=== PATIENT | female | born 1995 | race African-American/Black ===

== ENCOUNTER 2017-08-25 18:52 | Emergency (ER) | payer OTHER ==
[2017-08-25] MEDS ORDERED: Aspirin Low Dose CHEW TAB* 81 MG PO ONE (19:53)
[2017-08-25 20:18] LABS: Urine Bacteria Absent (Absent); Urine Bilirubin Negative (Negative); Urine Glucose Negative (Negative); Urine Nitrite Negative (Negative)
--- NOTE | 2017-08-25 20:30 | RAD ---
HISTORY: Chest pain COMPARISONS: None VIEWS: 4: Frontal dual-energy and lateral views of the chest. FINDINGS: CARDIOMEDIASTINAL SILHOUETTE: The cardiomediastinal silhouette is normal. FRANK: The frank are normal. PLEURA: The costophrenic angles are sharp. No pleural abnormalities are noted. LUNG PARENCHYMA: The lungs are clear. ABDOMEN: The upper abdomen is clear. There is no subphrenic gas. BONES AND SOFT TISSUES: There is a scoliotic curvature of the spine OTHER: None. IMPRESSION: NO ACTIVE CARDIOPULMONARY DISEASE.
[2017-08-25 21:18] LABS: Hematocrit 38 % (35-47); Mean Corpuscular HGB Conc 34 g/dl (31-36); Mean Corpuscular Hemoglobin 30 pg (27-31); Mean Corpuscular Volume 88 fL (80-97); Mean Platelet Volume 10 um3 (7.4-10.4); Red Blood Count 4.38 10^6/ul (4.0-5.4); Red Cell Distribution Width 14 % (10.5-15); White Blood Count 3.6 10^3/ul (3.5-10.8)
[2017-08-25 21:33] LABS: ALT 20 U/L (7-52); AST 22 U/L (13-39); Albumin 4.8 g/dL (3.2-5.2); Alkaline Phosphatase 50 U/L (34-104); Anion Gap 9 mmol/L (2-11); BUN/Creatinine Ratio 10.2 (8-20); Blood Urea Nitrogen 11 mg/dL (6-24); CO2 Carbon Dioxide 24 mmol/L (22-32); Calcium 9.9 mg/dL (8.6-10.3); Chloride 104 mmol/L (101-111); EGFR African American 81.6 (>60); EGFR Non-African American 63.4 (>60); Globulin 4.3 g/dL (2-4); Glucose 86 mg/dL (70-100); Potassium 3.6 mmol/L (3.5-5.0); Sodium 137 mmol/L (133-145); Total Protein 9.1 g/dL (6.4-8.9)
[2017-08-25] MEDS ORDERED: NS 0.9% 1000 ML* 1,000 ML IV ONE (21:58)
[2017-08-25 22:05] LABS: TSH (Thyroid Stimulating Horm) 2.86 mcIU/mL (0.34-5.60)
[2017-08-25] MEDS ORDERED: Iohexol 350* (CONTRAST) 500 ML MDV IV ONE (22:13)
[2017-08-25 23:33] VITALS: BP 125/81
--- NOTE | 2017-08-26 06:53 | ED ---
Sami Geller Alfonso, scribed for Roberto Fritz MD on 08/25/17 at 2049 . HPI Chest Pain - HPI Summary HPI Summary: This patient is a 22 year old F presenting to [facility] with a chief complaint of intermittent left sided chest tightness since 1200 today. The patient rates the pain 4/10 in severity. Symptoms aggravated by nothing. Symptoms alleviated by nothing. Patient reports lightheadedness (aggravated by standing up), near syncope (lasting a week and resolved), SOB (resolved), and lower abdominal pain (resolved). Patient denies back pain. She reports a similar pain in her youth. She is currently on her menstrual period. She takes BCP. She is a [employer] Student. PMHx includes mitral valve prolapse. - History of Current Complaint Chief Complaint: EDChestPainROMI Time Seen by Provider: 08/25/17 19:34 Hx Obtained From: Patient Onset/Duration: Started Hours Ago, Still Present Timing: Constant Current Severity: Mild Pain Intensity: 4 Pain Scale Used: 0-10 Numeric Chest Pain Location: Discrete at: - Left Character: Tightness Aggravating Factor(s): Nothing Alleviating Factor(s): Nothing Associated Signs and Symptoms: Positive: Other: - lightheadedness (aggravated by standing up), near syncope (lasting a week and resolved), SOB (resolved), and lower abdominal pain (resolved). Patient denies back pain - Allergy/Home Medications Allergies/Adverse Reactions: Allergies Allergy/AdvReac Type Severity Reaction Status Date / Time Amoxicillin Allergy Hives Verified 08/25/17 19:14 PMH/Surg Hx/FS Hx/Imm Hx Cardiovascular History: Reports: Other Cardiovascular Problems/Disorders - mitral valve prolapse Respiratory History: Reports: Other Respiratory Problems/Disorders - bronchial spasms Opthamlomology History: Denies: Hx Legally Blind EENT History: Denies: Hx Deafness Infectious Disease History: No Infectious Disease History: Denies: Traveled Outside the [place] in Last 30 Days - Family History Known Family History: Positive: Other - scoliosis - Social History Alcohol Use: Weekly Substance Use Type: Reports: None Smoking Status (MU): Never Smoked Tobacco Review of Systems Positive: Chest Pain Positive: Shortness Of Breath - resolved Positive: Abdominal Pain - resolved Positive: Other - Negative back pain Neurological: Other - lightheadedness (aggravated by standing up), near syncope (lasting a week and resolved) All Other Systems Reviewed And Are Negative: Yes Physical Exam - Summary Physical Exam Summary: VITAL SIGNS: Reviewed. GENERAL: Patient is a well-developed and nourished female who is lying comfortable in the stretcher. Patient is not in any acute respiratory distress. HEAD AND FACE: No signs of trauma. No ecchymosis, hematomas or skull depressions. No sinus tenderness. EYES: PERRLA, EOMI x 2, No injected conjunctiva, no nystagmus. EARS: Hearing grossly intact. Ear canals and tympanic membranes are within normal limits. MOUTH: Oropharynx within normal limits. NECK: Supple, trachea is midline, no adenopathy, no JVD, no carotid bruit, no c- spine tenderness, neck with full ROM. CHEST: Symmetric, no tenderness at palpation LUNGS: Clear to auscultation bilaterally. No wheezing or crackles. CVS: Regular rate and rhythm, S1 and S2 present, no murmurs or gallops appreciated. ABDOMEN: Soft, non-tender. No signs of distention. No rebound no guarding, and no masses palpated. Bowel sounds are normal. EXTREMITIES: FROM in all major joints, no edema, no cyanosis or clubbing. NEURO: Alert and oriented x 3. No acute neurological deficits. Speech is normal and follows commands. SKIN: Dry and warm Triage Information Reviewed: Yes Vital Signs On Initial Exam: Initial Vitals Temp Pulse Resp BP Pulse Ox 97.1 F 78 18 155/96 100 08/25/17 19:11 08/25/17 19:11 08/25/17 19:11 08/25/17 19:11 08/25/17 19:11 Vital Signs Reviewed: Yes - Taz Coma Scale Coma Scale Total: 15 Diagnostics - Vital Signs Vital Signs Temp Pulse Resp BP Pulse Ox 08/25/17 19:11 97.1 F 78 18 155/96 100 - Laboratory Lab Results: Lab Results 08/25/17 Range/Units 19:42 Urine Color Straw Urine Appearance Clear Urine pH 7.0 (5-9) Ur Specific [place] 1.009 L (1.010-1.030) Urine Protein Negative (Negative) Urine Ketones Negative (Negative) Urine Blood 2+ H (Negative) Urine Nitrate Negative (Negative) Urine Bilirubin Negative (Negative) Urine Urobilinogen Negative (Negative) Ur Leukocyte Esterase Negative (Negative) Urine WBC (Auto) Trace(0-5/hpf) (Absent) Urine RBC (Auto) 3+(>10/hpf) H (Absent) Urine Bacteria Absent (Absent) Urine Glucose Negative (Negative) Result Diagrams: 08/25/17 21:00 08/25/17 21:00 Lab Statement: Any lab studies that have been ordered have been reviewed, and results considered in the medical decision making process. - Radiology CXR Radiology Interpretation Completed By: Radiologist - NO ACTIVE CARDIOPULMONARY DISEASE. ED physician has reviewed this radiology report and agrees. - CT CTA CT Interpretation Completed By: Radiologist - No PE. No aortic dissection or aneurysm. No pneumonia or pleural effusions. Small anterior mediastinal soft tissue, probably thymic. Levoscoliosis. ED physician has reviewed this radiology report and agrees. - EKG 1916 Cardiac Rate: NL - 77 BPM EKG Rhythm: Sinus Rhythm EKG Interpretation: No ST elevation. Normal axis. Chest Pain Course/Dx - Course Assessment/Plan: This patient is a 22 year old F presenting to [facility] with a chief complaint of intermittent left sided chest tightness since 1200 today. The patient rates the pain 4/10 in severity. Symptoms aggravated by nothing. Symptoms alleviated by nothing. Patient reports lightheadedness (aggravated by standing up), near syncope (lasting a week and resolved), SOB (resolved), and lower abdominal pain (resolved). Patient denies back pain. She reports a similar pain in her youth. She is currently on her menstrual period. She takes BCP. She is a [employer] Student. PMHx includes mitral valve prolapse. An EKG reveals NSR. CXR reveals NO ACTIVE CARDIOPULMONARY DISEASE. ED physician has reviewed this radiology report and agrees. Test results with no significant abnormalities except for D-Dimer of 305. I decided to do the D-Dimer since the patient is complaining of CP, SOB, and she is on an oral contraceptive. In the ED course the patient was hydrated. CTA reveals No PE. No aortic dissection or aneurysm. No pneumonia or pleural effusions. Small anterior mediastinal soft tissue, probably thymic. Levoscoliosis. ED physician has reviewed this radiology report and agrees. Since all the test results are negative and the patient is feeling better, she will be discharged to home with PCP follow up. The patient is hemodynamically stable and alert and oriented x3. - Chest Pain Differential Diagnosis/HQI/PQRI: Acute CA, ACS, Angina, CHF, Chest Wall, GI Disease, Lower Respiratory Infection - Diagnoses Provider Diagnoses: Chest pain Discharge - Discharge Plan Condition: Stable Disposition: HOME Patient Education Materials: Chest Pain (ED) Referrals: [facility] - Ravi MARTIN [Primary Care Provider] - 3 Days Additional Instructions: RETURN TO THE EMERGENCY DEPARTMENT FOR CHANGING OR WORSENING SYMPTOMS. The documentation as recorded by the aSmi pratt Alfonso accurately reflects the service I personally performed and the decisions made by Lam vyas Walter, MD.
--- NOTE | 2017-08-26 07:35 | RAD ---
INDICATION: Chest pain and shortness of breath. COMPARISON: Correlation is made with a chest x-ray study from August 25, 2017. TECHNIQUE: A CT angiogram of the chest was performed with intravenous following intravenous injection of 66 ml of Omnipaque 350 nonionic contrast. Contiguous axial sections were obtained from the lung apices through the lung bases. Images were reconstructed in the coronal and sagittal planes. FINDINGS: There is relatively homogeneous opacification of the pulmonary arteries. No intraluminal filling defect or pulmonary embolism is seen. The heart is within normal limits in size. No pericardial effusion is present. The thoracic aorta is normal in caliber and demonstrates homogeneous contrast opacification. No significant enlarged mediastinal or hilar lymph nodes are seen. There is increased soft tissue density in the anterior mediastinum most consistent with residual thymus tissue. The lungs are clear. No pleural effusion is seen. There is a moderate dorsal lumbar scoliosis convex toward the left side. IMPRESSION: NO EVIDENCE FOR PULMONARY EMBOLISM.
== END 2017-08-25 23:35 | disposition home or self-care (01) ==
LOC: ED 18:52
DX: R07.9 Chest pain, unspecified (principal); I34.1 Nonrheumatic mitral (valve) prolapse; Z88.0 Allergy status to penicillin
CPT/HCPCS: 36415; 71020; 71275; 80053; 81003; 81015; 82553; 83880; 84443; 84484; 84702; 85025; 85379; 86703; 93005; 96360; 96374; 99282; A9270-GY; Q9967

== ENCOUNTER 2019-08-21 22:11 | Emergency (ER) | payer BC, OTHER ==
[2019-08-21 23:55] LABS: ABS Eosinophils 0.1 10^3/ul (0-0.6); ABS Lymphocytes 1.3 10^3/ul (1.0-4.8); ABS Monocytes 0.6 10^3/ul (0-0.8); ABS Neutrophils 1.2 10^3/ul (1.5-7.7); Eosinophil % 2.2 %; Hematocrit 38 % (35-47); Hemoglobin 12.6 g/dL (12.0-16.0); Lymphocyte % 41.8 %; Mean Corpuscular HGB Conc 34 g/dL (31-36); Mean Corpuscular Hemoglobin 29 pg (27-31); Mean Corpuscular Volume 87 fL (80-97); Mean Platelet Volume 9.6 fL (7.4-10.4); Nucleated Red Blood Cells % 0.1; Platelet Count 169 10^3/uL (150-450); Red Blood Count 4.34 10^6 /uL (3.70-4.87); Red Cell Distribution Width 15 % (10-15); White Blood Count 3.2 10^3/uL (3.5-10.8)
--- NOTE | 2019-08-22 | ED ---
Palpitations / Dysrhythmia - HPI Summary HPI Summary: This patient is a 24 year old female presenting to [facility] with a chief complaint of palpitations since 6 hours ago. She states it felt like her heart was skipping beats and irregular. She states she has had these episodes before and they usually go away but this time it has not. She said it would come and go in spurts but they have not stopped yet. She has a Hx of mitral valve prolapse. She denies SOB, syncope, abdominal pain, n/v. - History of Current Complaint Chief Complaint: EDDysrhythmPalp Time Seen by Provider: 08/21/19 23:54 Hx Obtained From: Patient Onset/Duration: Lasting Hours Character: Irregular, Skipped Beats - Allergy/Home Medications Allergies/Adverse Reactions: Allergies Allergy/AdvReac Type Severity Reaction Status Date / Time amoxicillin Allergy Rash Verified 08/21/19 22:19 Home Medications: Home Medications NK [No Home Medications Reported] 08/22/19 [History Confirmed 08/22/19] PMH/Surg Hx/FS Hx/Imm Hx Endocrine/Hematology History: Denies: Hx Diabetes Cardiovascular History: Reports: Other Cardiovascular Problems/Disorders - mitral valve prolapse Respiratory History: Reports: Other Respiratory Problems/Disorders - bronchial spasms Sensory History: Denies: Hx Legally Blind, Hx Deafness Opthamlomology History: Denies: Hx Legally Blind Infectious Disease History: No Infectious Disease History: Denies: Traveled Outside the [place] in Last 30 Days - Family History Known Family History: Positive: Other - scoliosis - Social History Alcohol Use: Weekly Substance Use Type: Reports: None Smoking Status (MU): Never Smoked Tobacco Review of Systems Positive: Palpitations Negative: Shortness Of Breath Negative: Abdominal Pain, Vomiting, Nausea Negative: Syncope All Other Systems Reviewed And Are Negative: Yes Physical Exam - Summary Physical Exam Summary: Appearance: Well-appearing, Well-nourished, lying in bed comfortably Skin: Warm, dry, no obvious rash Eyes: sclera anicteric, no conjunctival pallor ENT: mucous membranes moist, pharynx appears normal Neck: Supple, nontender Respiratory: Clear to auscultation, no signs of respiratory distress Cardiovascular: Normal S1, S2. No murmurs. Normal distal pulses in tibial and radial bilaterally. Abdomen: Soft, nontender, normal active bowel sounds present Musculoskeletal: Normal, Strength/ROM Intact Neurological: A&Ox3, awake and alert, mentation is normal, speech is fluent and appropriate Psychiatric: affect is normal, does not appear anxious or depressed Triage Information Reviewed: Yes Vital Signs On Initial Exam: Initial Vitals Temp Pulse Resp BP Pulse Ox 98.6 F 85 16 143/97 98 08/21/19 22:14 08/21/19 22:14 08/21/19 22:14 08/21/19 22:14 08/21/19 22:14 Vital Signs Reviewed: Yes Procedures - Sedation Patient Received Moderate/Deep Sedation with Procedure: No Diagnostics - Vital Signs Vital Signs Temp Pulse Resp BP Pulse Ox 08/21/19 22:14 98.6 F 85 16 143/97 98 - Laboratory Result Diagrams: 08/21/19 23:38 08/21/19 23:38 Lab Statement: Any lab studies that have been ordered have been reviewed, and results considered in the medical decision making process. - EKG 2222 Cardiac Rate: NL - 81 BPM EKG Rhythm: Sinus Rhythm Summary of EKG Findings: NSR at 81 BPM, P waves, QRS complex, and T waves are within normal limits, T waves and intervals are normal, no ischemic changes. This is a normal EKG. ED Provider has reviewed and interpreted this EKG. Course/Dx - Course Course Of Treatment: This patient is a 24 year old female presenting to [facility] with a chief complaint of palpitations since 6 hours ago. The patient's history is indicative of palpitations. EKG was unremarkable. A plan for discharge was discussed with the patient and she was agreeable with this plan. - Diagnoses Provider Diagnoses: Palpitations Discharge ED - Sign-Out/Discharge Documenting (check all that apply): Patient Departure - Discharge Patient Received Moderate/Deep Sedation with Procedure: No - Discharge Plan Condition: Good Disposition: HOME Patient Education Materials: Heart Palpitations (ED) Referrals: [facility] - Ravi MARTIN [Primary Care Provider] - Rd Jiang MD [Medical Doctor] - If Needed - Billing Disposition and Condition Condition: GOOD Disposition: Home - Attestation Statements Document Initiated by Scribe: Yes Documenting Scribe: Young Connors Provider For Whom Scribe is Documenting (Include Credential): Delfin Nath MD Scribe Attestation: Young Geller, scribed for Delfin Nath MD on 08/28/19 at 0325. Scribe Documentation Reviewed: Yes Provider Attestation: The documentation as recorded by the scribe, Young Connors accurately reflects the service I personally performed and the decisions made by me, Delfin Nath MD Status of Scribluz elena Document: Viewed
[2019-08-22 00:04] LABS: Albumin 4.8 g/dL (3.2-5.2); Albumin/Globulin Ratio 1.5 (1-3); BUN/Creatinine Ratio 15.7 (8-20); Calcium 9.6 mg/dL (8.6-10.3); EGFR African American 75.4 (>60); EGFR Non-African American 62.3 (>60); Globulin 3.2 g/dL (2-4); Potassium 3.9 mmol/L (3.5-5.0); Total Bilirubin 0.4 mg/dL (0.2-1.0)
[2019-08-22 00:23] VITALS: BP 138/90
[2019-08-22 00:31] LABS: TSH (Thyroid Stimulating Horm) 3.6 mcIU/mL (0.34-5.60)
== END 2019-08-22 00:17 | disposition home or self-care (01) ==
LOC: ED 22:11
DX: R00.2 Palpitations (principal); I34.1 Nonrheumatic mitral (valve) prolapse; Z88.1 Allergy status to other antibiotic agents
CPT/HCPCS: 36415; 80053; 83605; 83735; 84443; 84484; 85025; 93005; 99282

== ENCOUNTER 2019-09-13 19:58 | Emergency (ER) | payer BC ==
--- NOTE | 2019-09-13 20:11 | ED ---
Palpitations / Dysrhythmia - HPI Summary HPI Summary: This patient is a 24 year old F [facility] vis EMS to ED with a chief complaint of intermittent palpitations since 1529 today. Patient describes her palpitations as if her heart is skipping beats momentarily. She also reports having chest pain earlier today, but it is not present in the ED room. She reports numbness in the left arm that is still present. Patient has had the palpitations before but never in conjunction with the chest pain and numbness. Patient saw a accident investigator on 01/12/2019 and she was to be sent up with an ambulatory heart monitor. PMHx of mitral valve prolapse. The patient rates the pain 0/10 in severity. Symptoms aggravated by nothing. Symptoms alleviated by nothing. Patient denies shortness of breath, dizziness. - History of Current Complaint Chief Complaint: EDChestWallPain Time Seen by Provider: 09/13/19 20:00 Hx Obtained From: Patient Onset/Duration: Gradual Onset, Lasting Hours - Since 1529, Still Present - Palpitations, numbness, Resolved - Chest pain Timing: Intermittent Episodes Lasting: Severity Initially: Mild Severity Currently: Mild Character: Skipped Beats Aggravating: Nothing Alleviating: Nothing Associated Signs & Symptoms: Negative - Dizzy, shortness of breath, Chest Pain - Now resolved - Allergy/Home Medications Allergies/Adverse Reactions: Allergies Allergy/AdvReac Type Severity Reaction Status Date / Time amoxicillin Allergy Rash Verified 09/13/19 20:12 PMH/Surg Hx/FS Hx/Imm Hx Endocrine/Hematology History: Denies: Hx Diabetes Cardiovascular History: Reports: Other Cardiovascular Problems/Disorders - mitral valve prolapse Denies: Hx Hypertension Respiratory History: Reports: Other Respiratory Problems/Disorders - bronchial spasms Sensory History: Denies: Hx Legally Blind, Hx Deafness Opthamlomology History: Denies: Hx Legally Blind - Surgical History Surgery Procedure, Year, and Place: Denies Infectious Disease History: No Infectious Disease History: Denies: Traveled Outside the [place] in Last 30 Days - Family History Known Family History: Positive: Other - scoliosis Negative: Diabetes - Social History Alcohol Use: Weekly Alcohol Amount: 2x a week Hx Substance Use: No Substance Use Type: Reports: None Hx Tobacco Use: No Smoking Status (MU): Never Smoked Tobacco Review of Systems Positive: Palpitations, Chest Pain - Earlier today, not present in the ED room Negative: Shortness Of Breath Neurological: Negative - Dizziness Positive: Numbness - Left arm All Other Systems Reviewed And Are Negative: Yes Physical Exam - Summary Physical Exam Summary: Appearance: Well-appearing, Well-nourished, lying in bed comfortable Skin: Warm, dry, no obvious rash Eyes: sclera anicteric, no conjunctival pallor ENT: mucous membranes moist Neck: deferred Respiratory: No signs of respiratory distress Cardiovascular: Appears well perfused, pulses are nml Abdomen: deferred Musculoskeletal: Moving all 4 extremities without obvious discomfort Neurological: Awake and alert, mentation is normal, speech is fluent and appropriate Psychiatric: affect is normal, does not appear anxious or depressed Triage Information Reviewed: Yes Vital Signs On Initial Exam: Initial Vitals Temp Pulse Resp BP Pulse Ox 98.4 F 97 16 169/95 100 09/13/19 19:59 09/13/19 19:59 09/13/19 19:59 09/13/19 19:59 09/13/19 19:59 Vital Signs Reviewed: Yes Procedures - Sedation Patient Received Moderate/Deep Sedation with Procedure: No Diagnostics - Vital Signs Vital Signs Temp Pulse Resp BP Pulse Ox 09/13/19 19:59 98.4 F 97 16 169/95 100 - Laboratory Result Diagrams: 09/13/19 21:19 09/13/19 21:19 Lab Statement: Any lab studies that have been ordered have been reviewed, and results considered in the medical decision making process. - Radiology CXR Radiology Interpretation Completed By: ED Physician Summary of Radiographic Findings: No acute processes, pending official radiology report. - EKG 2012 Cardiac Rate: NL - 82 BPM EKG Rhythm: Sinus Rhythm ST Segment: Normal Ectopy: None Summary of EKG Findings: NSR at 82 BPM BPM, P waves, QRS complex, and T waves are within normal limits, T waves and intervals are normal, no ischemic changes. This is a normal EKG. Dr. Nath has reviewed and interpreted this EKG. Re-Evaluation - Re-Evaluation First Eval Re-Evaluation Time: 22:33 Comment: Discussed results with patient. Patient will be discharged home with dx of palpitations and chest pain. Patient understands and agrees with this plan. Course/Dx - Course Course Of Treatment: This patient is a 24 year old F [facility] vis EMS to ED with a chief complaint of intermittent palpitations since 1530 today. EKG at 2013 revealed NSR at 82 BPM BPM, P waves, QRS complex, and T waves are within normal limits, T waves and intervals are normal, no ischemic changes. This is a normal EKG. CXR revealed no acute processes, pending official radiology report. Blood work revealed anion gap 12, creatining 1.09, negative D-dimer. In the ED course patient received Motrin. Discussed results with patient. Patient will be discharged home with dx of palpitations and chest pain. Patient understands and agrees with this plan. - Diagnoses Provider Diagnoses: Palpitations, Chest pain Discharge ED - Sign-Out/Discharge Documenting (check all that apply): Patient Departure - Discharge - Discharge Plan Condition: Good Disposition: HOME Patient Education Materials: Heart Palpitations (ED), Noncardiac Chest Pain (ED ), Premature Atrial Contractions (ED) Referrals: [facility] - Ravi MARTIN [[employer], APPLICATION, OTHER] - Additional Instructions: Followup with the accident investigator for your ambulatory heart rhythm testing. All the test we ran today were negative, so your symptoms tonight don't appear to be from anything dangerous. - Billing Disposition and Condition Condition: GOOD Disposition: Home - Attestation Statements Document Initiated by Guerreroibe: Yes Documenting Scribe: Bear Pang Provider For Whom Jaun is Documenting (Include Credential): Delfin Nath MD Scribe Attestation: I, Bear Pang, scribed for Delfin Nath MD on 09/14/19 at 0503. Scribe Documentation Reviewed: Yes Provider Attestation: The documentation as recorded by the guerreroibeBear accurately reflects the service I personally performed and the decisions made by me, Delfin Nath MD Status of Scribe Document: Viewed
--- OUTSIDE RECORDS SUMMARY | 2019-09-13 20:49 | XMS REPORT | Continuity of Care Document ---
:1995 External Reference #:[id number] Author Name Abby Monson N.P. (transmitted by agent of provider Chelsea Gutierrez) Address [address] [place] [address] Care Team Providers Name Role Phone Yasmine Bautista PA-C - Surgical Care Team Information Pattern Chart Writer [phone] Problems Active Problems Provider Date Mitral valve disorder Winifred Miller M.D. Onset: 04/25/2018 Social History Type Date Description Comments Sex Unknown ETOH Use Occasionally consumes 2 drinks a week on alcohol average. Tobacco Use Start: Unknown Patient has never smoked Recreational Drug Use Denies Drug Use Smoking Status Reviewed: 09/11/19 Patient has never smoked Exercise Type/Frequency Exercises sporadically Just began Yoga Allergies, Adverse Reactions, Alerts Active Allergies Reaction Severity Comments Date Amoxicillin rash as a baby 04/25/2018 Inactive Allergies NKDA 04/11/2018 Medications Active Medications SIG Qnty Indications Ordering Provider Date Vitamin D by mouth everyday Unknown 1000Unit Tablets Immunizations Description No Information Available Vital Signs Date Vital Result Comment 09/11/2019 2:29pm Height 70 inches 5'10" Weight 141.12 lb without boots Heart Rate 62 /min radial,regular BP Systolic Sitting 128 mmHg LA, reg cuff BP Diastolic Sitting 88 mmHg LA, reg cuff BP Systolic Standing 138 mmHg LA, reg cuff BP Diastolic Standing 90 mmHg LA, reg cuff BMI (Body Mass Index) 20.2 kg/m2 Ejection Fraction 55%-60% echo 04/30/18 04/25/2018 10:00am Height 70 inches 5'10" Weight 148.00 lb w/ shoes Heart Rate 86 /min BP Systolic Sitting 138 mmHg lue rg cuff BP Diastolic Sitting 84 mmHg lue rg cuff BP Systolic Standing 152 mmHg lue rg cuff BP Diastolic Standing 92 mmHg lue rg cuff Respiratory Rate 18 /min BMI (Body Mass Index) 21.2 kg/m2 Ejection Fraction no echo Results Description No Information Available Procedures Date Code Description Status 09/11/2019 64757 EKG Tracing & Interpretation Completed Medical Devices Description No Information Available Encounters Type Date Location Provider Dx Diagnosis Office Visit 09/11/2019 [facility] Abby Monson, I34.1 Nonrheumatic mitral 2:30p N.P. (valve) prolapse R00.2 Palpitations E87.6 Hypokalemia Assessments Date Code Description Provider 09/11/2019 I34.1 Nonrheumatic mitral (valve) prolapse Abby Monson, N.P. 09/11/2019 R00.2 Palpitations Abby Monson, N.P. 09/11/2019 E87.6 Hypokalemia Abby Monson, N.P. Plan of Treatment 09/11/2019 - Abby Monson, N.P.I34.1 Nonrheumatic mitral (valve) hlbruzxxU73.2 PalpitationsNew Orders:Event Monitor, Ordered: 09/11/19Follow up: 2mo OV LS after testing.E87.6 Hypokalemia Functional Status Description No Information Available Mental Status Description No Information Available Referrals Description No Information Available
--- OUTSIDE RECORDS SUMMARY | 2019-09-13 20:49 | XMS REPORT | Continuity of Care Document ---
:1995 External Reference #:[id number] Author Name [facility] Care Team Providers Name Role Phone Yasmine Bautista PA-C - Surgical Care Team Information Regional Construction Manager [phone] Problems Active Problems Provider Date Mitral valve disorder Winifred Miller M.D. Onset: 04/25/2018 Social History Type Date Description Comments Sex Unknown ETOH Use Occasionally consumes 3 drinks a week on alcohol average. Tobacco Use Start: Unknown Patient has never smoked Recreational Drug Use Denies Drug Use Smoking Status Reviewed: 04/25/18 Patient has never smoked Exercise Type/Frequency Exercises sporadically Allergies, Adverse Reactions, Alerts Active Allergies Reaction Severity Comments Date Amoxicillin rash as a baby 04/25/2018 Inactive Allergies NKDA 04/11/2018 Medications Active Medications SIG Qnty Indications Ordering Provider Date Vitamin D by mouth everyday Unknown 1000Unit Tablets Immunizations Description No Information Available Vital Signs Date Vital Result Comment 04/25/2018 10:00am Height 70 inches 5'10" Weight [...] echo Results Description No Information Available Procedures Description No Information Available Medical Devices Description No Information Available Encounters Description No Information Available Assessments Description No Information Available Plan of Treatment 04/25/2018 - Winifred Miller M.D.I34.1 Nonrheumatic mitral (valve) prolapseFollow up:Release of records: Echo/office notes 1. [facility] 2014 2. [facility]. Option of phone call after echo or OV @ Replaced By [facility] office. OV q 1-2 yearsRecommendations:Check a few BP's at [place] or pharmacy Functional Status Description No Information Available Mental Status Description No Information Available Referrals Description No Information Available
[2019-09-13 21:33] LABS: Hematocrit 38 % (35-47); Hemoglobin 12.5 g/dL (12.0-16.0); Mean Corpuscular HGB Conc 33 g/dL (31-36); Mean Corpuscular Hemoglobin 29 pg (27-31); Mean Corpuscular Volume 87 fL (80-97); Mean Platelet Volume 9.5 fL (7.4-10.4); Platelet Count 183 10^3/uL (150-450); Red Blood Count 4.32 10^6 /uL (3.70-4.87); Red Cell Distribution Width 15 % (10-15); White Blood Count 3.6 10^3/uL (3.5-10.8)
[2019-09-13 22:04] LABS: ABS Basophils 0.1 10^3/ul (0-0.2); ABS Eosinophils 0.1 10^3/ul (0-0.6); ABS Lymphocytes 1.1 10^3/ul (1.0-4.8); ABS Monocytes 0.5 10^3/ul (0-0.8); Eosinophil % 1.6 %; Lymphocyte % 29.4 %; Nucleated Red Blood Cells % 0.2
[2019-09-13 22:33] LABS: Troponin I 0.01 ng/mL (<0.04)
[2019-09-13 22:37] LABS: Albumin 4.9 g/dL (3.2-5.2); CO2 Carbon Dioxide 22 mmol/L (22-32); Calcium 10.3 mg/dL (8.6-10.3); Chloride 105 mmol/L (101-111); HCG Pregnancy < 0.60 mIU/mL; Sodium 139 mmol/L (135-145)
[2019-09-13 22:43] LABS: ALT 16 U/L (7-52); Albumin/Globulin Ratio 1.4 (1-3); Alkaline Phosphatase 51 U/L (34-104); BUN/Creatinine Ratio 11.9 (8-20); Blood Urea Nitrogen 13 mg/dL (6-24); EGFR African American 74.6 (>60); EGFR Non-African American 61.7 (>60); Globulin 3.6 g/dL (2-4); Glucose 90 mg/dL (70-100); Total Protein 8.5 g/dL (6.4-8.9)
[2019-09-13] MEDS ORDERED: Ketorolac INJ* 30 MG/ML 1 ML VIAL IV PUSH ONE (22:44)
[2019-09-13 22:47] LABS: Anion Gap 12 mmol/L (2-11)
[2019-09-13] MEDS ORDERED: Ibuprofen TAB* 400 MG PO ONE (22:48)
[2019-09-13 22:54] VITALS: BP 128/90
== END 2019-09-13 22:54 | disposition home or self-care (01) ==
LOC: ED 19:58
DX: R00.2 Palpitations (principal); R07.9 Chest pain, unspecified; R20.0 Anesthesia of skin; Z88.0 Allergy status to penicillin
CPT/HCPCS: 36415; 71046; 80053; 84484; 84702; 85025; 85379; 93005; 99283; A9270-GY; J1885